=== PATIENT | female | born 1975 | race Caucasian/White ===

== ENCOUNTER 2021-09-10 22:29 | Emergency (ER) | payer BC ==
[2021-09-10] MEDS ORDERED: Nitrofurantoin Monohydrate/Macrocrystalline 100 MG Cap PO ONE (23:42)
--- NOTE | 2021-09-10 23:45 | EDM.PDOC ---
ED HPI GENERAL MEDICAL PROBLEM - General Chief Complaint: Genitourinary Problem Stated Complaint: TROUBLE URINATING, BLOOD IN URINE Time Seen by Provider: 09/10/21 22:47 - History of Present Illness INITIAL COMMENTS - FREE TEXT/NARRATIVE: CHIEF COMPLAINT(S): Suprapubic pain HISTORY OF PRESENT ILLNESS: This is a 46-year-old woman with a past medical history of hypertension who comes to the emergency department with a chief co mplaint of suprapubic pain. The patient states that initially it started as dysuria yesterday however as time has gone along its become worse. She describes suprapubic pain as cramping and now worse when she urinates. She states that she has had increased urgency and feels like every time she goes to the restroom she is only able to pee a small amount. She denies any back pain, nausea, or vomiting. She states that she may have had a fever of 101 today. She denies any vaginal discharge or bleeding. She currently rates her pain as 6 out of 10 without any radiation. Pain is exacerbated by urinating. There is no relieving factors. Last menstrual period was August 30, 2021. REVIEW OF SYSTEMS: Constitutional: Denies fever, chills. Eyes: Denies eye pain Ears, Nose, Mouth, & Throat: Denies earache Cardiovascular: Denies chest pain Respiratory: Denies shortness of breath Gastrointestinal: Denies Nausea, vomiting, diarrhea, hematochezia. Genitourinary: Positive for dysuria, increased urgency and frequency. Denies hematuria, vaginal bleeding, vaginal discharge Skin:Denies a rash MSK: Denies joint pain Neurological: Denies blurred vision Psychiatric: Denies depression PAST MEDICAL HISTORY: As per history of present illness and as reviewed below otherwise noncontributory. SURGICAL HISTORY: As per history of present illness and as reviewed below otherwise noncontributory. LMP: August 30, 2021 SOCIAL HISTORY: As per history of present illness and as reviewed below otherwise noncontributory. FAMILY HISTORY: As per history of present illness and as reviewed below ot herwise noncontributory. EXAMINATION OF ORGAN SYSTEMS/BODY AREAS: Constitutional: Blood pressure is 190/114, heart rate 108, respiratory rate 18 with an oxygen saturation of 98% on room air. Temperature 36.8 General: Well-appearing woman who is in no acute distress Psychiatric: Appropriate mood and affect. Eyes: No scleral icterus or conjunctival erythema Cardiovascular: Regular, rate, and rhythm. No gallops, murmurs, or rubs. Bilateral upper extremity pulses symmetric and intact. No peripheral edema. No JVD. Respiratory: Lungs clear to auscultation bilaterally. No wheezes, rales, or rhonchi. Gastrointestinal: Soft, non-tender, non-distended. Normoactive bowel sounds Genitourinary: Suprapubic tenderness to palpation. No CVA tenderness Musculoskeletal: Normal range of motion. Skin: No lesions or abrasions. Neurological: Alert, GCS 15 MEDICAL DECISION MAKING AND COURSE IN THE ED WITH INTERPRETATION/REVIEW OF DIAGNOSTIC STUDIES: This is a 46-year-old woman with a past medical history of hypertension who presents to the emergency department with urinary tract infection symptoms. At this time we will obtain a urinalysis. I do not believe any labs or imaging are indicated. The patient is mildly tachycardic but is afebrile and well-appearing. Laboratory: Urinalysis reveals hematuria with trace leukocyte esterase, 4-8 WBCs with few bacteria. hCG is negative. After lab I did start the patient on nitrofurantoin given that the patient is allergic to sulfa and penicillins. I discussed the results with the patient. She was amenable to this plan. She was given strict return precautions. She had no further questions. DISPOSITION: The patient was discharged home in stable condition. The patient will follow up with primary care physician in 3 to 5 days CONDITION: Fair PROCEDURES: None FINAL IMPRESSION(S)/DIAGNOSES: 1. Acute cystitis Negro Joyner M.D. Vaginal Pain Score (Numeric/FACES): 6 - Related Data Allergies Allergy/AdvReac Type Severity Reaction Status Date / Time Penicillins Allergy Hives Verified 09/10/21 22:39 Sulfa (Sulfonamide Allergy Hives Verified 09/10/21 22:39 Antibiotics) Home Meds: Home Meds nitrofurantoin macrocrystaL [Nitrofurantoin] 100 mg PO BID #9 capsule 09/10/21 [Rx] Past Medical History - Past Health History Medical/Surgical History: Denies Medical/Surgical History - Infectious Disease History Infectious Disease History: Reports: None Social & Family History - Family History Family Medical History: No Pertinent Family History - Tobacco Use Tobacco Use Status *Q: Never Tobacco User Second Hand Smoke Exposure: No - Recreational Drug Use Recreational Drug Use: No ED ROS GENERAL - Review of Systems Review Of Systems: See Below ED EXAM, GENERAL - Physical Exam Exam: See Below Course - Vital Signs Last Recorded V/S: Last Vital Signs Temp 36.8 C 09/10/21 22:34 Pulse 108 H 09/10/21 22:34 Resp 18 09/10/21 22:34 BP 190/114 H 09/10/21 22:34 Pulse Ox 98 09/10/21 22:34 - Orders/Labs/Meds Orders: Active Orders 24 hr Category Date Time Status CULTURE URINE [MREF] Stat Lab 09/10/21 22:40 Received Labs: Laboratory Tests 09/10/21 09/10/21 Range/Units 22:40 22:40 Urine Color YELLOW Urine Appearance SLT CLOUDY Urine pH 7.0 (5.0-8.0) Ur Specific [place] 1.025 (1.001-1.035) Urine Protein 100 H (NEGATIVE) mg/dL Urine Glucose (UA) NEGATIVE (NEGATIVE) mg/dL Urine Ketones NEGATIVE (NEGATIVE) mg/dL Urine Occult Blood LARGE H (NEGATIVE) Urine Nitrite NEGATIVE (NEGATIVE) Urine Bilirubin NEGATIVE (NEGATIVE) Urine Urobilinogen 0.2 (<2.0) EU/dL Ur Leukocyte Esterase TRACE H (NEGATIVE) Urine RBC 30-40 (0-2/HPF) Urine WBC 4-8 (0-5/HPF) Ur Epithelial Cells FEW (NONE-FEW) Urine Bacteria FEW (NEGATIVE) Urine HCG, Qual NEGATIVE (NEGATIVE) Meds: Medications Discontinued Medications Generic Name Dose Route Start Last Admin Trade Name Deondreq PRN Reason Stop Dose Admin Nitrofurantoin Macrocrystals 100 mg 09/10/21 23:42 09/11/21 00:24 Nitrofurantoin Monohydrate/Macrocrystalline 100 Mg Cap PO 09/10/21 23:43 100 mg ONETIME ONE Administration Departure - Departure Time of Disposition: 23:44 Disposition: Home, Self-Care 01 Condition: Fair Clinical Impression: UTI, Urinary tract infectious disease - Discharge Information *PRESCRIPTION DRUG MONITORING PROGRAM REVIEWED*: No *COPY OF PRESCRIPTION DRUG MONITORING REPORT IN PATIENT MERLYN: No Prescriptions: nitrofurantoin macrocrystaL [Nitrofurantoin] 100 mg PO BID #9 capsule Instructions: Urinary Tract Infection, Adult Referrals: PCP,None [Primary Care Provider] - Forms: ED Department Discharge Additional Instructions: You were evaluated today on an emergent basis. At this time your urinalysis did reveal a small urinary tract infection. I did start you on an antibiotic here in the emergency department. I recommend that you take nitrofurantoin twice a day for the next 5 days. If you have any worsening symptoms such as worsening fever, vomiting, worsening pain I would like you to return to the emergency department. Otherwise follow-up with your primary care physician in 3 to 5 days. [facility] [address] [place] [id number] [place] [address] The patient is informed of any results of their evaluation and diagnostic workup and all questions are answered. They are given discharge instructions and return precautions. The patient is stable for discharge. The patient states they understand and agree with the plan and that they will return if their symptoms get worse or if they have any new concerns. The following information is given to patients seen in the emergency department who are being discharged to home. This information is to outline your options for follow-up care. We provide all patients seen in our emergency department with a follow-up referral. The need for follow-up, as well as the timing and circumstances, are variable depending upon the specifics of your emergency department visit. If you don't have a primary care physician on staff, we will provide you with a referral. We always advise you to contact your personal physician following an emergency department visit to inform them of the circumstance of the visit and for follow-up with them and/or the need for any referrals to a consulting specialist. The emergency department will also refer you to a specialist when appropriate. This referral assures that you have the opportunity for follow-up care with a specialist. All of these measure are taken in an effort to provide you with optimal care, which includes your follow-up. Under all circumstances we always encourage you to contact your private physician who remains a resource for coordinating your care. When calling for follow-up care, please make the office aware that this follow-up is from your recent emergency room visit. If for any reason you are refused follow-up, please contact the [facility] Emergency Department at and asked to speak to the emergency department charge nurse. Sepsis Event Note (ED) - Evaluation Sepsis Screening Result: No Definite Risk - Focused Exam Vital Signs: Vital Signs Temp Pulse Resp BP Pulse Ox 09/10/21 22:34 36.8 C 108 H 18 190/114 H 98 - My Orders Last 24 Hours: My Active Orders 09/10/21 22:40 CULTURE URINE [MREF] Stat - Assessment/Plan Last 24 Hours: My Active Orders 09/10/21 22:40 CULTURE URINE [MREF] Stat
== END 2021-09-11 00:38 | disposition home or self-care (01) ==
LOC: MW.ED 22:29
DX: N30.00 Acute cystitis without hematuria (principal); Z88.0 Allergy status to penicillin; Z88.1 Allergy status to other antibiotic agents
CPT/HCPCS: 81001; 81025; 87086; 99284; A9270

== ENCOUNTER 2022-11-28 08:39 | Emergency (ER) | payer OTHER | END 2022-11-28 10:05 | disposition home or self-care (01) | LOC: MW.ED 08:39 | DX: M25.562 Pain in left knee (principal); I10 Essential (primary) hypertension; Z88.0 Allergy status to penicillin; Z88.2 Allergy status to sulfonamides; Z79.899 Other long term (current) drug therapy; X50.0XXA Overexertion from strenuous movement or load, initial encounter | CPT/HCPCS: 73562-26-LT; 73562-LT; 99283 ==

== ENCOUNTER 2024-06-11 03:17 | Emergency (ER) | payer OTHER, BC ==
[2024-06-11 03:42] LABS: BASOPHILS ABSOLUTE AUTO 0.03 K/uL (0.00-0.20); BASOPHILS PERCENT AUTO 0.3 % (0.0-1.0); EOSINOPHILS ABSOLUTE AUTO 0.02 K/uL (0.00-0.45); EOSINOPHILS PERCENT AUTO 0.2 % (0.0-6.0); HEMOGLOBIN 8.8 g/dL (12.0-16.0); IMMATURE GRAN ABSOLUTE AUTO 0.04 K/uL (0.00-0.05); IMMATURE GRAN PERCENT AUTO 0.4 % (0.0-0.4); LYMPHOCYTES PERCENT AUTO 9.2 % (24.0-44.0); MEAN CORPUSCULAR HEMOGLOBIN 21.3 pg (28.0-32.0); MEAN CORPUSCULAR HGB CONC 30.3 g/dL (32.0-36.0); MEAN CORPUSCULAR VOLUME 70.2 fL (83.0-99.0); MEAN PLATELET VOLUME 9.2 fL (9.4-12.3); MONOCYTES ABSOLUTE AUTO 0.86 K/uL (0.00-0.80); MONOCYTES PERCENT AUTO 8.8 % (0.0-8.0); NEUTROPHILS PERCENT AUTO 81.1 % (41.0-71.0); PLATELET COUNT,PLT 308 K/uL (150-400); RED BLOOD CELL COUNT 4.13 M/uL (4.10-5.30); WHITE BLOOD CELL COUNT,WBC 9.75 K/uL (3.9-11.3)
[2024-06-11] MEDS: Sodium Chloride 0.9% 1,000 ML IV ONE ×2 (03:52→05:42)
[2024-06-11] MEDS: LORazepam 2 MG/ML SDV IVPUSH ONE (03:53)
[2024-06-11] MEDS: Ketorolac 30 MG/ML SDV IVPUSH ONE (03:54)
[2024-06-11] MEDS: Sodium Chloride 0.9% 2.5 ML Syringe FLUSH PRN (03:55)
[2024-06-11] MEDS: Sodium Chloride 0.9% 10 ML Syringe FLUSH PRN (03:55)
[2024-06-11 04:07] LABS: A/G RATIO 0.9 (0.9-1.6); ALBUMIN 3.8 g/dL (3.4-5.0); BILIRUBIN TOTAL 0.9 mg/dL (0.2-1.0); CARBON DIOXIDE,CO2 24.3 mmol/L (21.0-32.0); EST CRCL DRUG DOSING (CG) 60.06 mL/min; POTASSIUM,K 3.9 mmol/L (3.5-5.1); PROTEIN TOTAL,TP 7.9 g/dL (6.4-8.2)
[2024-06-11 04:26] LABS: BILIRUBIN,URINE NEGATIVE (NEGATIVE); COLOR,URINE YELLOW; GLUCOSE,URINE NEGATIVE (NEGATIVE); KETONES,URINE NEGATIVE (NEGATIVE); LEUKOCYTE ESTERASE,URINE NEGATIVE (NEGATIVE); NITRITE,URINE NEGATIVE (NEGATIVE); OCCULT BLOOD,URINE NEGATIVE (NEGATIVE); PROTEIN,URINE NEGATIVE (NEGATIVE)
[2024-06-11 04:28] LABS: APPEARANCE,URINE HAZY
[2024-06-11 04:33] LABS: BACTERIA,URINE FEW (NEGATIVE); MUCUS,URINE LIGHT (NONE-MOD); RBC,URINE 0-1 (0-2/HPF); SQUAMOUS EPITHELIAL CELLS,UR MODERATE; WBC,URINE 0-1 (0-5/HPF)
[2024-06-11 04:36] LABS: AMPHETAMINES SCREEN, URINE PRESUMPTIVE POSITIVE (CUTOFF=500); BARBITURATE SCREEN,URINE NEGATIVE (CUTOFF=200); BENZODIAZEPINES SCREEN,URINE NEGATIVE (CUTOFF=150); BUPRENORPHINE SCREEN,URINE NEGATIVE (CUTOFF=10); METHADONE SCREEN, URINE NEGATIVE (CUTOFF=200); METHAMPHETAMINES SCREEN, URINE NEGATIVE (CUTOFF=500); OXYCODONE SCREEN,URINE NEGATIVE (CUT0FF=100); PCP SCREEN,URINE NEGATIVE (CUTOFF=25); THC SCREEN,URINE 20 NG/ML NEGATIVE (CUTOFF=50)
[2024-06-11] MEDS: Iopamidol 755 MG/ML 500 ML Multipack Bottle IVPUSH ONE (05:05)
[2024-06-11] MEDS: Acetaminophen 325 MG Tab PO ONE (05:42)
[2024-06-11 06:35] LABS: CORONAVIRUS COVID-19 NAA NEGATIVE (NEGATIVE); INFLUENZA A NAA NEGATIVE (NEGATIVE); INFLUENZA B NAA NEGATIVE (NEGATIVE); RESPIRATORY SYNCYTIAL VIR NAA NEGATIVE (NEGATIVE)
[2024-06-11] MEDS: Lidocaine 4% 1 each Patch TOP PRN (06:54)
== END 2024-06-11 07:00 | disposition home or self-care (01) ==
LOC: MW.ED 03:17
DX: R50.9 Fever, unspecified (principal); M54.6 Pain in thoracic spine; I10 Essential (primary) hypertension; Z79.899 Other long term (current) drug therapy; Z88.0 Allergy status to penicillin; Z88.2 Allergy status to sulfonamides; Z75.8 Other problems related to medical facilities and other health care
CPT/HCPCS: 0241U; 36415; 71045; 71275; 80053; 80305; 81001; 81025; 83690; 83880; 84484; 85025; 85379; 87651; 93005; 96361; 96374; 96375; 99285; A9270; J1885; J2060; J3490; J7030; Q9967; 93010; 99284

== ENCOUNTER 2024-06-19 21:39 | Emergency (ER) | payer OTHER, BC ==
[2024-06-19] MEDS: Ibuprofen 400 MG Tab PO ONE (21:55)
[2024-06-19] MEDS: Clindamycin HCl 150 MG Cap PO ONE (22:46)
== END 2024-06-19 22:50 | disposition home or self-care (01) ==
LOC: MW.ED 21:39
DX: J02.0 Streptococcal pharyngitis (principal); I10 Essential (primary) hypertension; Z79.899 Other long term (current) drug therapy; Z88.0 Allergy status to penicillin; Z88.2 Allergy status to sulfonamides; Z91.040 Latex allergy status; Z75.8 Other problems related to medical facilities and other health care
CPT/HCPCS: 87651; 99283; A9270

== ENCOUNTER 2025-08-12 13:20 | Emergency (ER) | payer OTHER, BC ==
[2025-08-12] MEDS ORDERED: Sodium Chloride 0.9% 2.5 ML Syringe FLUSH PRN (14:05)
[2025-08-12] MEDS ORDERED: Sodium Chloride 0.9% 10 ML Syringe FLUSH PRN (14:05)
[2025-08-12 14:29] LABS: BASOPHILS ABSOLUTE AUTO 0.06 K/uL (0.00-0.20); BASOPHILS PERCENT AUTO 0.6 % (0.0-1.0); EOSINOPHILS ABSOLUTE AUTO 0.27 K/uL (0.00-0.45); EOSINOPHILS PERCENT AUTO 2.8 % (0.0-6.0); IMMATURE GRAN ABSOLUTE AUTO 0.09 K/uL (0.00-0.05); IMMATURE GRAN PERCENT AUTO 0.9 % (0.0-0.4); LYMPHOCYTES ABSOLUTE AUTO 1.98 K/uL (1.00-4.80); LYMPHOCYTES PERCENT AUTO 20.8 % (24.0-44.0); MEAN PLATELET VOLUME 9.5 fL (9.4-12.3); MONOCYTES ABSOLUTE AUTO 0.66 K/uL (0.00-0.80); MONOCYTES PERCENT AUTO 6.9 % (0.0-8.0); NEUTROPHILS ABSOLUTE AUTO 6.47 K/uL (1.80-7.70); NEUTROPHILS PERCENT AUTO 68.0 % (41.0-71.0); NRBC ABSOLUTE 0.00 K/uL (0.00-0.02); NRBC PERCENT 0.0 /100WBC (0.0-0.2); PLATELET COUNT,PLT 497 K/uL (150-400); RED BLOOD CELL COUNT 3.31 M/uL (4.10-5.30); WHITE BLOOD CELL COUNT,WBC 9.53 K/uL (3.9-11.3)
[2025-08-12 14:43] LABS: IRON,FE 11.0 ug/dL (50-175); PERCENT FE SATURATION 2.41 % (20-55)
[2025-08-12 14:51] LABS: A/G RATIO 0.9 (0.9-1.6); ALANINE AMINOTRANSFERASE,ALT 14 IU/L (14-63); ASPARTATE AMNIOTRANSFERASE,AST 12 IU/L (15-37); BILIRUBIN TOTAL 0.6 mg/dL (0.2-1.0); BLOOD UREA NITROGEN,BUN 13 mg/dL (7.0-18.0); CARBON DIOXIDE,CO2 28.4 mmol/L (21.0-32.0); CHLORIDE,CL 100 mmol/L (98-107); CREATININE 0.9 mg/dL (0.6-1.0); EST CRCL DRUG DOSING (CG) 68.79 mL/min; GLUCOSE RANDOM 95 mg/dL (74-106); POTASSIUM,K 3.2 mmol/L (3.5-5.1); PRO B-TYPE NATRIUR PEPT,BNPPRO 20 pg/mL (0-125); PROTEIN TOTAL,TP 7.7 g/dL (6.4-8.2); SODIUM,NA 137 mmol/L (136-145)
[2025-08-12 14:56] LABS: ESTIMATED GFR 79 mL/min (>60)
[2025-08-12] MEDS: Potassium Chloride 20 MEQ Tab.ER PO ONE (18:00)
[2025-08-12] MEDS: Potassium Chloride 10 MEQ Tab.ER PO ONE (18:27)
== END 2025-08-12 20:16 | disposition home or self-care (01) ==
LOC: MW.ED 13:20
DX: D50.9 Iron deficiency anemia, unspecified (principal); N92.0 Excessive and frequent menstruation with regular cycle; I10 Essential (primary) hypertension; Z79.899 Other long term (current) drug therapy; Z88.0 Allergy status to penicillin; Z91.040 Latex allergy status; Z88.2 Allergy status to sulfonamides
CPT/HCPCS: 36415; 36430; 76856; 80053; 83550; 83735; 83880; 84484; 85014; 85018; 85025; 86850; 86900; 86901; 86920; 93005; 99285; A9270; P9016; 99283